=== PATIENT | female | born 1945 | race Caucasian/White ===

== ENCOUNTER → 2017-05-24 | Outpatient (CLI) | payer MEDICARE, MEDICAID ==
[~2017-05-24] MED LIST: AMOXICOT500 MG PO; BACTRIM DS 8001 TAB PO; CLONAZEPAM0.5 M1 PO; CYMBALTA60 MG PO; LISINOPRIL/HCTZ1 TA3 PO; MEDROL 4MG. DOSE4 MG PO; MELOXICAM7.5 MG PO; NAPROSYN500 M1 PO; NORCO 325 MG-51 TAB PO; PRAVACHOL40 MG PO; PRAVASTATIN 40M40 MG PO; TESSALON PERLE100 MG PO; TRAZADONE HYDR100 MG PO; VIBRAMYCIN 100100 MG PO
--- NOTE | 2017-05-24 15:11 | RADIOLOGY REPORT PS360 ---
CHEST(2 VIEWS-NOT PORTABLE) HISTORY: SHORTNESS OF BREATH,COPD ORDERING PHYSICIAN: Juana NEELY PATIENT AGE: 71 years COMPARISON: 09/29/2014 FINDINGS: The cardiomediastinal silhouette and pulmonary vascularity are within normal limits. The lungs are clear without infiltrates, suspicious nodules, or pleural effusions. No acute bony abnormalities. IMPRESSION: No change with no acute finding
== END ==
LOC: RAD 14:26
DX: R06.02 Shortness of breath (principal); J44.9 Chronic obstructive pulmonary disease, unspecified